=== PATIENT | male | born 1950 | race Caucasian/White ===

== ENCOUNTER 2016-10-15 09:17 | Emergency (ER) | payer MEDICARE ==
[~2016-10-15] VITALS: Ht 170.2 cm; Wt 75.9 kg
[~2016-10-15 09:17] MED LIST: ASPI325T4 PO; ATOR20TA9 PO; BUPR1FIL3 PO; BUPR1FIL3 SL; GABA600T PO; INSU100V8 SQ; LISI-167 PO; METF10002 PO; METF500T4 PO; TRAZ100T15 PO; [UNRECOGNIZED DRUG - OTHER]
[2016-10-15] MEDS ORDERED: LORazepam 1MG TABLET ONE (09:58)
[2016-10-15] MEDS ORDERED: ONDANSETRON ODT 4 MG ONE (09:59)
[2016-10-15] MEDS ORDERED: ONDANSETRON ODT 4 MG PO ONE (10:00)
[2016-10-15] MEDS ORDERED: LORazepam 1MG TABLET PO ONE (10:00)
[2016-10-15 10:35] VITALS: BP 153/100
== END 2016-10-15 10:39 | disposition home or self-care (01) ==
LOC: ED 10:20
DX: F19.939 Other psychoactive substance use, unspecified with withdrawal, unspecified (principal); I10 Essential (primary) hypertension; E11.9 Type 2 diabetes mellitus without complications; F11.20 Opioid dependence, uncomplicated
CPT/HCPCS: 99284; Q0162

== ENCOUNTER 2018-01-21 15:14 | Emergency (ER) | payer MEDICARE ==
[~2018-01-21] VITALS: Ht 170.2 cm; Wt 67.0 kg
[~2018-01-21 15:14] MED LIST changes: +ASPI325T17 PO; -ASPI325T4 PO; -METF500T4 PO; +METF500T5 PO; +METH40TA2 PO; +ONDA4TAB13 PO; +TRAM50TA2 PO
[2018-01-21 16:02] LABS: BASOPHILS # (AUTO) 0.05 x10^3/uL (0-0.1); BASOPHILS % (AUTO) 0 % (0-1); EOSINOPHILS # (AUTO) 0.69 x10^3/uL (0-0.4); EOSINOPHILS % (AUTO) 5 % (1-7); LYMPHOCYTES # (AUTO) 2.38 x10^3/uL (1-3.4); LYMPHOCYTES % (AUTO) 16 % (22-44); MD NO; MEAN CORPUSCULAR HEMOGLOBIN 31.3 pg (27.5-34.5); MEAN CORPUSCULAR HGB CONC 33.3 g/dL (33.2-36.2); MEAN CORPUSCULAR VOLUME 94.2 fL (81-97); MEAN PLATELET VOLUME 8.2 fL (7.4-10.4); MONOCYTES # (AUTO) 0.79 x10^3/uL (0.2-0.8); MONOCYTES % (AUTO) 5 % (2-9); NEUTROPHILS # (AUTO) 11.38 x10^3/uL (1.8-6.8); NEUTROPHILS % (AUTO) 74 % (42-75); PLATELET COUNT 458 x10^3/uL (130-400); RED BLOOD COUNT 4.76 x10^6/uL (4.38-5.82); RED CELL DISTRIBUTION WIDTH 15.8 % (9.4-14.8)
[2018-01-21 16:12] LABS: ALBUMIN 3.4 g/dL (3.4-5.0); ANION GAP 9 mmol/L (5-15); CALCIUM 9.2 mg/dL (8.5-10.1); CHLORIDE 102 mmol/L (98-107)
[2018-01-21 16:15] LABS: ALANINE AMINOTRANSFERASE 29 U/L (12-78); ALKALINE PHOSPHATASE 90 U/L (45-117); BILIRUBIN,TOTAL 0.3 mg/dL (0.2-1.0); CREATININE 0.96 mg/dL (0.7-1.3); TOTAL PROTEIN 8.3 g/dL (6.4-8.2)
[2018-01-21] MEDS ORDERED: ONDANSETRON ODT 4 MG PO ONE (16:30)
[2018-01-21] MEDS ORDERED: ONDANSETRON ODT 4 MG ONE (16:41)
[2018-01-21 16:56] VITALS: BP 135/78
== END 2018-01-21 17:26 | disposition home or self-care (01) ==
LOC: ED 17:15
DX: F11.23 Opioid dependence with withdrawal (principal); E11.65 Type 2 diabetes mellitus with hyperglycemia; I10 Essential (primary) hypertension; F32.9 Major depressive disorder, single episode, unspecified; F41.1 Generalized anxiety disorder; F17.210 Nicotine dependence, cigarettes, uncomplicated
CPT/HCPCS: 36415; 71045; 80053; 85025; 93005; 99285; Q0162